=== PATIENT | female | born 2000 | race African-American/Black ===

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

== ENCOUNTER → 2023-11-17 | Outpatient (CLI) | payer BC ==
--- NOTE | 2023-11-17 09:30 | XR ---
EXAM TYPE: LUMBAR SPINE X RAY SERIES COMPARISON: NONE HISTORY: Low back pain TECHNIQUE: 4 views are submitted. FINDINGS: Alignment is anatomic. The pedicles are intact. The transverse processes are intact. There is no s pondylolysis or spondylolisthesis. Surgical clips are noted. Spina bifida occulta lumbosacral juncti on. IMPRESSION: 1. No acute process. If concern for disc herniation correlate with MRI.
--- NOTE | 2023-11-17 09:31 | XR ---
EXAMINATION TYPE: XR sacrum coccyx DATE OF EXAM: 11/17/2023 COMPARISON: NONE HISTORY: Pain Three views are submitted. Sacrum is intact. SI joints are symmetric. Coccyx appears to be intact. Visualized pelvic structures intact. The lowest sacrococcygeal junction is somewhat displaced. IMPRESSION: 1. No acute fracture. There is displacement of the articulation of the lower sacrococcygeal junctio n. Could be chronic. Correlate clinically and if necessary with CT scan.
== END | disposition home or self-care (01) ==
LOC: RADXRMAIN 08:20
PROVIDERS: ATTEND Family Medicine
DX: M54.50 Low back pain, unspecified (principal); M54.30 Sciatica, unspecified side; M53.3 Sacrococcygeal disorders, not elsewhere classified
CPT/HCPCS: 72100; 72220

== ENCOUNTER → 2023-11-26 | Outpatient (CLI) | payer BC ==
--- NOTE | 2023-11-30 22:00 | CT ---
EXAMINATION TYPE: CT pelvis wo con DATE OF EXAM: 11/26/2023 COMPARISON: None HISTORY: 23-year-old female back pain. S33.2XXADISLOCATION OF SACROILIAC AND SACROCOCCYGE TECHNIQUE: Contiguous axial scanning of the pelvis without IV contrast. Coronal and sagittal reconstr uctions performed. CT DLP: 247.5 mGycm Automated exposure control for dose reduction was used. FINDINGS: The bladder is urine distended. Uterus is anteverted. Both ovaries are visualized. No abnormal fluid collection in the pelvis or pelvic lymphadenopathy. Normal appendix. SI joints appear symmetric and intact. Hips appear symmetric and intact. Possible transitional lumbosacral segment, likely lumbarized S1. The tip of the coccyx shows trace 2 mm of posterior displacement. Overlying soft tissue swelling is i dentified. IMPRESSION: 1. 2 MM STEP-OFF AT THE INFERIOR TIP OF THE COCCYX. CORRELATE FOR POINT TENDERNESS AND CONSIDER AN AG E INDETERMINATE, NONDISPLACED TAILBONE FRACTURE. 2. SUSPECT A TRANSITIONAL LUMBOSACRAL SEGMENT, LIKELY LUMBARIZED S1.
== END | disposition home or self-care (01) ==
LOC: RADCTMAIN 14:31
PROVIDERS: ATTEND Family Medicine
DX: S33.2XXA Dislocation of sacroiliac and sacrococcygeal joint, initial encounter (principal); X58.XXXA Exposure to other specified factors, initial encounter
CPT/HCPCS: 72192

== ENCOUNTER 2024-05-01 10:32 | Emergency (ER) | payer BC ==
[2024-05-01 10:46] VITALS: RESP 16; TEMP 98
--- NOTE | 2024-05-01 11:24 | ED ---
Psych HPI - General Chief Complaint: Psychiatric Symptoms Stated Complaint: Mental Health Time Seen by Provider: 05/01/24 10:45 Source: patient, RN notes reviewed Mode of arrival: ambulatory Limitations: no limitations - History of Present Illness Initial Comments: 23-year-old female presents emergency department chief complaint of depression, suicide nation. Patient states she is supposed be on medications for bipolar disorder in which she has not taken them currently. She states she has thoughts of harming self. She denies any self-harm denies fevers or chills. She does admit to alcohol use last night she does use marijuana denies any other drug use. Denies regular use of alcohol denies any homicidal ideation - Related Data Allergies Allergy/AdvReac Type Severity Reaction Status Date / Time No Known Allergies Allergy Verified 05/01/24 10:46 Review of Systems ROS Statement: Those systems with pertinent positive or pertinent negative responses have been documented in the HPI. ROS Other: All systems not noted in ROS Statement are negative. Past Medical History Past Medical History: Asthma History of Any Multi-Drug Resistant Organisms: None Reported Past Surgical History: Cholecystectomy Past Psychological History: Bipolar Smoking Status: Current every day smoker Past Alcohol Use History: Occasional Past Drug Use History: Marijuana General Exam Limitations: no limitations General appearance: alert, in no apparent distress Head exam: Present: atraumatic, normocephalic, normal inspection Eye exam: Present: normal appearance, PERRL, EOMI. Absent: scleral icterus, conjunctival injection, periorbital swelling ENT exam: Present: normal exam, mucous membranes moist Neck exam: Present: normal inspection, full ROM. Absent: tenderness, meningismus, lymphadenopathy Respiratory exam: Present: normal lung sounds bilaterally. Absent: respiratory distress, wheezes, rales, rhonchi, stridor Cardiovascular Exam: Present: regular rate, normal rhythm, normal heart sounds. Absent: systolic murmur, diastolic murmur, rubs, gallop, clicks GI/Abdominal exam: Present: soft, normal bowel sounds. Absent: distended, tenderness, guarding, rebound, rigid Neurological exam: Present: alert, oriented X3 Psychiatric exam: Present: depressed, flat affect Course Vital Signs 05/01/24 10:43 Temperature 98.0 F Pulse Rate 80 Respiratory 16 Rate Blood Pressure 119/88 O2 Sat by Pulse 98 Oximetry Medical Decision Making - Medical Decision Making Was pt. sent in by a medical professional or institution (HEATHER Avina, REGIONAL PROJECT MANAGER, urgent care, hospital, or alf...) When possible be specific @ -No Did you speak to anyone other than the patient for history (EMS, parent, family, police, friend...)? What history was obtained from this source @ -No Did you review nursing and triage notes (agree or disagree)? Why? @ -I reviewed and agree with nursing and triage notes Were old charts reviewed (outside hosp., previous admission, EMS record, old EKG, old radiological studies, urgent care reports/EKG's, alf records)? Report findings @ -No old charts were reviewed Differential Diagnosis (chest pain, altered mental status, abdominal pain women, abdominal pain men, vaginal bleeding, weakness, fever, dyspnea, syncope, headach e, dizziness, GI bleed, back pain, seizure, CVA, palpatations, mental health, musculoskeletal)? @ -Differential Mental Health Depression, anxiety, bipolar, psychosis, schizophrenia, borderline personality, situational depression, adjustment disorder, behavioral disorder, brain tumor, malingering, substance abuse, encephalopathy, medication reaction, dementia, hypothyroidism, degenerative neurologic disorder, lupus.... This is not meant to be all-inclusive list EKG interpreted by me (3pts min.). @ -None X-rays interpreted by me (1pt min.). @ -None done CT interpreted by me (1pt min.). @ -None done U/S interpreted by me (1pt. min.). @ -None done What testing was considered but not performed or refused? (CT, X-rays, U/S, labs)? Why? @ -None What meds were considered but not given or refused? Why? @ -None Did you discuss the management of the patient with other professionals (professionals i.e. HEATHER Avina, REGIONAL PROJECT MANAGER, lab, RT, psych nurse, social media content specialist, team member, teacher, access control officer, case briefer)? Give summary @ -[EPS evaluated patient and discussed case with psychiatry who recommends patient to be discharged Was smoking cessation discussed for >3mins.? @ -No Was critical care preformed (if so, how long)? @ -No Were there social determinants of health that impacted care today? How? (Homelessness, low income, unemployed, alcoholism, drug addiction, transportation, low edu. Level, literacy, decrease access to med. care, retirement, rehab)? @ -No Was there de-escalation of care discussed even if they declined (Discuss DNR or withdrawal of care, Hospice)? DNR status @ -No What co-morbidities impacted this encounter? (DM, HTN, Smoking, COPD, CAD, Cancer, CVA, ARF, Chemo, Hep., AIDS, mental health diagnosis, sleep apnea, morbid obesity)? @ -None Was patient admitted / discharged? Hospital course, mention meds given and route, prescriptions, significant lab abnormalities, going to OR and other pertinent info. @ -Discharged patient eval by EPS and advised to be discharged home with outpati ent treatment Undiagnosed new problem with uncertain prognosis? @ -No Drug Therapy requiring intensive monitoring for toxicity (Heparin, Nitro, Insulin, Cardizem)? @ -No Were any procedures done? @ -No Diagnosis/symptom? @ -Depression Acute, or Chronic, or Acute on Chronic? @ -Acute Uncomplicated (without systemic symptoms) or Complicated (systemic symptoms)? @ -Uncomplicated Side effects of treatment? @ -No Exacerbation, Progression, or Severe Exacerbation? @ -No Poses a threat to life or bodily function? How? (Chest pain, [place], [place], pneumonia, PE, COPD, DKA, ARF, appy, cholecystitis, CVA, Diverticulitis, Homicidal, Suicidal, threat to staff... and all critical care pts) @ -No - Lab Data Lab Results 05/01/24 Range/Units 12:05 SARS-CoV-2 (PCR) Not Detected (Not Detectd) Disposition Clinical Impression: Depression Disposition: HOME SELF-CARE Condition: Stable Additional Instructions: Please return to the Emergency Department if symptoms worsen or any other concerns. Is patient prescribed a controlled substance at d/c from ED?: No Referrals: Michael Lechuga MD [Primary Care Provider] - 1-2 days Time of Disposition: 15:26
[2024-05-01 15:50] VITALS: BP 133/84; PULSE 66
== END 2024-05-01 15:50 | disposition home or self-care (01) ==
LOC: EC 10:32
CPT/HCPCS: 82075; 87635; 99285

== ENCOUNTER → 2025-01-07 | Outpatient (CLI) | payer BC ==
--- NOTE | 2025-01-17 09:57 | EST ---
EXERCISE STRESS STUDY PERFORMED: Holter monitor. CLINICAL INFORMATION: Baseline rhythm is a sinus mechanism. The average rate is 92 beats per minute, minimum 57, maximum 147 beats per minute. Ventricular ectopic activity was present in the form of rare single PVCs. Supraventricular ectopic activity was present in the form of rare single PACs. No atrial fibrillation was noted. CONCLUSION: 1. Sinus mechanism baseline rhythm. 2. Rare ventricular ectopic activity. 3. Rare supraventricular ectopic activity. 4. No atrial fibrillation was noted. MMODL / IJN: [id number] /
== END | disposition home or self-care (01) ==
LOC: RADECHMAIN 01-06 07:32
PROVIDERS: ATTEND Family Medicine
DX: I49.3 Ventricular premature depolarization (principal); R55 Syncope and collapse
CPT/HCPCS: 93225

== ENCOUNTER 2025-03-07 06:12 | Day surgery (SDC) | payer BC ==
[2025-03-04 09:17] VITALS: BMI 28.3
[2025-03-07] MEDS ORDERED: SODIUM CHLORIDE 0.9% 1,000 ML IV SCH (07:01)
[2025-03-07 07:11] VITALS: BP 117/88; PULSE 55; RESP 16; TEMP 98.2
[2025-03-07] MEDS: IV FLUID CONTINUATION 500 ML IV ONE (07:34)
[2025-03-07] MEDS ORDERED: SODIUM CHLORIDE 0.9% 500 ML 500 ML IV SCH (07:45)
--- NOTE | 2025-03-07 10:24 | P.EPPROC ---
- EP Procedure Note Electrophysiology Procedure Note: Diagnosis: Recurrent syncope Twelve-lead EKG shows sinus rhythm normal MI narrow QRS early repolarization abnormality inferior laterally, normal variant for a 24-year-old woman Tilt table test per protocol Baseline blood pressure 160/58 mmHg. Baseline heart rate 56 beats a minute Patient was tilted upright in an angle of 70 degrees per protocol Heart rate and blood pressure remained stable The patient complained of feeling hot but without any change in heart rate or blood pressure There was no evidence for neurocardiogenic syncope Impression Normal twelve-lead EKG No evidence for neurocardiogenic syncope Normal heart rate and blood pressure response to upright tilting
== END 2025-03-07 10:13 | disposition home or self-care (01) ==
LOC: CATHEP 06:12
PROVIDERS: ATTEND Internal Medicine Clinical Cardiac Electrophysiology
DX: R55 Syncope and collapse (principal); R00.2 Palpitations; F41.9 Anxiety disorder, unspecified; F32.A Depression, unspecified; R07.89 Other chest pain; F17.290 Nicotine dependence, other tobacco product, uncomplicated; Z79.3 Long term (current) use of hormonal contraceptives; Z79.899 Other long term (current) drug therapy
CPT/HCPCS: 81025; 93660